=== PATIENT | male | born 1960 | race Caucasian/White ===

== ENCOUNTER 2017-10-05 17:55 | Emergency (ER) | payer BC ==
[2017-10-05] MEDS: HYDROmorphone 2 MG/ML SDV IM ONE ×2 (19:09→19:41)
[2017-10-05] MEDS: Ondansetron 4 MG Tab.DIS PO ONE (19:10)
[2017-10-05 20:09] VITALS: BP 162/97
--- NOTE | 2017-10-05 22:36 | ER ---
DATE SEEN: 10/05/2017 ADDENDUM: TIME SEEN: The patient was seen at 1645 hours. 1. The patient has an anterior chip fracture of L2 vertebral body. There is slight irregularity to the contour of the upper anterior border of the vertebral body, suggesting possible compression fractures involving more of the vertebra. 2. Obesity. 3. Hypertension. 4. Chronic obstructive sleep apnea with CPAP. PLAN: The patient's status was discussed with Dr. Tabor. The patient is to go to [facility] for MRI to determine if there is more involvement of the anterior vertebra of L2. MRI is pending. Rule out the need for a kyphoplasty to protect him from vertebral height loss. The patient received additional 2 mg of Dilaudid IM as he had not gotten relief from his initial first shot of 2 mg IM. /[id number] 2010 VIRGIL/LOULOU
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
== END 2017-10-05 20:00 ==
LOC: FB.ED 17:55
DX: S32.029A Unspecified fracture of second lumbar vertebra, initial encounter for closed fracture (principal); S80.812A Abrasion, left lower leg, initial encounter; R55 Syncope and collapse; E66.9 Obesity, unspecified; I10 Essential (primary) hypertension; G47.33 Obstructive sleep apnea (adult) (pediatric); Z99.89 Dependence on other enabling machines and devices; Z79.899 Other long term (current) drug therapy; W17.89XA Other fall from one level to another, initial encounter; Z68.41 Body mass index [BMI] 40.0-44.9, adult
CPT/HCPCS: 36415; 70450; 72125; 72131; 80053; 81001; 84484; 85025; 96372; 99284; A9270; J1170